=== PATIENT | female | born 1935 | race Caucasian/White ===

== ENCOUNTER 2022-04-07 07:26 | Observation (INO) ==
[2022-04-07] MEDS ORDERED: ONDANSETRON INJ 2 MG/ML 2 ML VIAL IV STA (07:44)
[2022-04-07] MEDS ORDERED: SODIUM CHLORIDE 0.9% 500 ML IV SCH (07:45)
--- NOTE | 2022-04-07 07:51 | Emergency Department Note ---
Impression & Plan Syncope, Acute hypokalemia, Contusion of face ED Provider Note NAME: ROBBIE GALLEGOS AGE: 86 SEX: F : 1935 ARRIVES VIA: Ambulance INFORMANT: Patient ED PROVIDER(S): Selvin Fry DO CHIEF COMPLAINT: Syncope HPI: Patient is an 86-year-old female who presents to the ER for a syncopal episode. Patient took 10 mg of her 's Aricept by accident last night. She wanted to go to the bathroom and the next thing she knew she woke up on the floor. Following that she has been persistently vomiting. She feels very dizzy and lightheaded. She feels very unstable with walking. Denies any headache and notes that her chin is a little sore. Is worse when she pushes on it. She does admit to some bruising there from falling and a chipped tooth. Denies any neck pain chest pain belly pain her any weakness or numbness in the arms or legs. ROS: See above HPI for pertinent positives & negatives. A total of 10 systems re viewed and were otherwise negative. PAST MEDICAL HISTORY:See Below PAST SURGICAL HISTORY:See Below FAMILY HISTORY:See Below SOCIAL HISTORY:See Below HOME MEDICATIONS:See Below ALLERGIES:See Below VITALS:See Below PHYSICAL EXAMINATION: GENERAL: alert, well appearing, well nourished, no distress, non-toxic HEAD: normal cephalic, atraumatic EYE EXAM: normal conjunctiva, PERRL and EOM's grossly intact OROPHARYNX: no exudate, no erythema, abrasion over the lower lip midline with small amount of oozing. #8 tooth is chipped. #9 is slightly loose. EARS: TMs clear b/l NECK: supple, no nuchal rigidity, no adenopathy, non-tender CHEST: stable to compression anteriorly and posteriorly LUNGS: clear to auscultation. Normal chest wall mechanics HEART: no murmurs, S1 normal and S2 normal ABDOMEN: abdomen soft, non-tender, normo-active bowel sounds, no masses, no rebound or guarding. PELVIS: stable to compression anteriorly and posteriorly BACK: Back is symmetrical on inspection and there is no deformity, no midline tenderness, no CVA tenderness. UPPER EXTREMITIES: full active and passive range of motion of all joints without tenderness to palpation LOWER EXTREMITIES: full active and passive range of motion of all joints without tenderness to palpation NEURO EXAM: Normal sensorium, cranial nerves II-XII grossly intact, normal speech, no gross weakness of arms, no gross weakness of legs. GCS: 15. MEDICAL DECISION MAKING: Patient is an 86-year-old female who syncopized following accidentally taking her 's medications. She denies any headache or change in vision. She does have some soreness on the chin. IV was established blood work was obtained. She had persistent vomiting since this occurred. Labs show no significant leukocytosis or anemia. INR unremarkable. BMP with mild hypokalemia 3.3. LFTs bilirubin was unremarkable. Troponin was negative. TSH slightly up at 4.8. UA was contaminated but no signs of infection. COVID was negative. CT head cervical spine and face showed no acute fractures. Patient was updated bedside. Discussed with Dr. Rell Koroma for further evaluation. Triage Nursing notes reviewed. Limited review of prior medical records performed Vital Signs: reviewed and remarkable for HTN Differential diagnosis: Differential diagnoses include major intracranial, cervical, spinal, thoracic, abdominal, pelvic and neurologic injury. Fracture, contusion, sprain, strain, laceration, abrasions included as well. ER treatment provided: See below Diagnostics interpreted by me: ECG: Sinus rhythm rate 79 Poor baseline QTC 449 Cardiac Monitoring: An order was placed for continuous cardiac monitoring. The monitor shows a rate of 80 with sinusrhythm. Laboratory studies: As stated above and show below. Imaging studies: CT of the head cervical spine and face shows no acute fractures Consultation(s): As described above Procedures: none Critical Care: None Past Med/Surg History Medical History History of trigeminal neuralgia Hyperlipemia Hypertension Skin cancer FACE Surgical History H/O colonoscopy H/O tubal ligation History of cataract surgery BILAT Status post Mohs surgery for basal cell carcinoma Status post right breast lumpectomy (10/14/21) Right Breast Lumpectomy with Wire Locilization(Right) - Nimesh Escamilla DO Family History (Updated 04/07/22 @ 10:08 by Marcio Koroma) Father Cancer Oral cancer; age 54 Hypertension Lung cancer Brother Stroke Hypertension Mother Hypertension age 80 in her sleep; cause unknown Social History (Updated 04/07/22 @ 10:09 by Marcio Koroma) Smoking Status: Never smoker Second Hand Exposure: No; Hx Alcohol Use: Yes Alcohol type: wine Alcohol Intake Frequency: Monthly or Less Hx Substance Use: No Preferred Language: Hungarian Communication Ability: Effective Distribution Operations Supervisor Required: No Beliefs That Will Affect Care: None marital status: Current Living Situation: Spouse [facility] 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 How many Children do You have: 2 How many Children do You have Comment: sons Feels Safe at Home: Yes during the past year weight has: remained stable Assistive Devices: Glasses Allergies Allergies Allergy/AdvReac Type Severity Reaction Status Date / Time No Known Allergies Allergy Verified 10/25/21 12:55 Home Meds Home Medications Medication Instructions Recorded Confirmed fluvastatin 80 mg tablet,extended 80 mg PO HS 04/10/19 10/25/21 release 24 hr gabapentin 100 mg capsule 200 mg PO HS 04/10/19 10/25/21 losartan 100 mg tablet 100 mg PO QAM 04/10/19 10/25/21 multivitamin (Daily Multi-Vitamin 1 tab PO QAM 04/10/19 10/25/21 tablet) Results & Data (ED) Vital Signs Vital Signs - 24 hr 04/07/22 07:39 04/07/22 07:39 04/07/22 07:43 Temperature 37.1 C Temperature Source Oral Pulse Rate 79 Respiratory Rate 16 Respiratory Effort / Characteristics Non-Labored Respiratory Depth Normal Blood Pressure 171/74 H Blood Pressure Mean 106 Pulse Oximetry 97 97 97 Oxygen Delivery Method Room Air Room Air Room Air Sepsis Recent Fever Within 48 Hours No Sepsis New/Unexplained Change in Mental Status No Sepsis Action Taken by Nursing No Action Required 04/07/22 08:00 04/07/22 08:00 Temperature Temperature Source Pulse Rate 76 Respiratory Rate 14 Respiratory Effort / Characteristics Respiratory Depth Blood Pressure 151/78 H Blood Pressure Mean 102 Pulse Oximetry Oxygen Delivery Method Sepsis Recent Fever Within 48 Hours Sepsis New/Unexplained Change in Mental Status Sepsis Action Taken by Nursing Laboratory Data Result diagrams: 04/07/22 07:38 04/07/22 07:38 Lab Results 04/07/22 04/07/22 04/07/22 Range/Units 07:38 07:38 07:38 WBC 5.78 (4.8-10.8) K/ul RBC 4.26 (3.93-5.22) M/uL Hgb 13.5 (12.0-16.0) g/dl Hct 39.4 (34.1-44.9) % MCV 92.5 (80.0-100.0) fL MCH 31.7 (25.0-34.0) pg MCHC 34.3 (32.0-36.0) g/dL RDW Std Deviation 42.6 (36.4-46.3) fL RDW Coeff of Jayde 12.4 (11.5-14.5) % Plt Count 197 (130-400) K/uL MPV 9.3 L (9.4-12.3) fL Immature Gran % (Auto) 0.5 % Neut % (Auto) 80.7 % Lymph % (Auto) 10.2 % Huntington % (Auto) 7.8 % Eos % (Auto) 0.3 % Baso % (Auto) 0.5 % Neut # (Auto) 4.66 (1.4-6.5) K/uL Lymph # (Auto) 0.59 L (1.2-3.4) K/uL Huntington # (Auto) 0.45 (0.24-0.82) K/uL Eos # (Auto) 0.02 (0-0.50) K/uL Baso # (Auto) 0.03 (0-0.2) K/uL Immature Gran # (Auto) 0.03 H (0.00-0.02) K/uL PT 11.3 (9.0-12.0) Seconds INR 1.1 (0.9-1.1) APTT 24.1 (21.0-31.0) Seconds PTT Ratio 0.9 Sodium 136 (136-145) mmol/L Potassium 3.3 L (3.5-5.1) mmol/L Chloride 102 (98-107) mmol/L Carbon Dioxide 26 (21-32) mmol/L Anion Gap 8 (3-11) BUN 11 (6-23) mg/dl Creatinine 0.69 (0.6-1.2) mg/dl Est Cr Clr Drug Dosing 48.9 ml/min Est GFR ( Amer) 92.6 ml/min Est GFR (Non-Af Amer) 79.9 ml/min BUN/Creatinine Ratio 15.9 (10-20) Glucose 184 H (70-99(Fasting)) mg/dl Calcium 9.1 (8.5-10.1) mg/dl Magnesium 1.7 (1.7-2.4) mg/dl Total Bilirubin 0.5 (0.2-1.0) mg/dl AST 42 H (13-39) U/L ALT 35 (7-52) U/L Alkaline Phosphatase 69 (34-104) U/L Total Creatine Kinase (26-192) U/L Troponin I High Sens 4.4 (0-14) pg/ml Total Protein 6.3 (6.0-8.3) gm/dl Albumin 4.2 (3.4-5.0) gm/dl Globulin 2.1 L (2.5-4.0) gm/dl Albumin/Globulin Ratio 2.0 (0.9-2) TSH (0.300-4.500) uIu/ml Free T4 (0.61-1.60) ng/dl SARS-CoV-2, RNA, NAAT (NEGATIVE) 04/07/22 04/07/22 04/07/22 Range/Units 07:38 07:38 07:54 WBC (4.8-10.8) K/ul RBC (3.93-5.22) M/uL Hgb (12.0-16.0) g/dl Hct (34.1-44.9) % MCV (80.0-100.0) fL MCH (25.0-34.0) pg MCHC (32.0-36.0) g/dL RDW Std Deviation (36.4-46.3) fL RDW Coeff of Jayde (11.5-14.5) % Plt Count (130-400) K/uL MPV (9.4-12.3) fL Immature Gran % (Auto) % Neut % (Auto) % Lymph % (Auto) % Huntington % (Auto) % Eos % (Auto) % Baso % (Auto) % Neut # (Auto) (1.4-6.5) K/uL Lymph # (Auto) (1.2-3.4) K/uL Huntington # (Auto) (0.24-0.82) K/uL Eos # (Auto) (0-0.50) K/uL Baso # (Auto) (0-0.2) K/uL Immature Gran # (Auto) (0.00-0.02) K/uL PT (9.0-12.0) Seconds INR (0.9-1.1) APTT (21.0-31.0) Seconds PTT Ratio Sodium (136-145) mmol/L Potassium (3.5-5.1) mmol/L Chloride (98-107) mmol/L Carbon Dioxide (21-32) mmol/L Anion Gap (3-11) BUN (6-23) mg/dl Creatinine (0.6-1.2) mg/dl Est Cr Clr Drug Dosing ml/min Est GFR ( Amer) ml/min Est GFR (Non-Af Amer) ml/min BUN/Creatinine Ratio (10-20) Glucose (70-99(Fasting)) mg/dl Calcium (8.5-10.1) mg/dl Magnesium (1.7-2.4) mg/dl Total Bilirubin (0.2-1.0) mg/dl AST (13-39) U/L ALT (7-52) U/L Alkaline Phosphatase (34-104) U/L Total Creatine Kinase 140 (26-192) U/L Troponin I High Sens (0-14) pg/ml Total Protein (6.0-8.3) gm/dl Albumin (3.4-5.0) gm/dl Globulin (2.5-4.0) gm/dl Albumin/Globulin Ratio (0.9-2) TSH 4.827 H (0.300-4.500) uIu/ml Free T4 0.76 (0.61-1.60) ng/dl SARS-CoV-2, RNA, NAAT NEGATIVE (NEGATIVE) Administered Medications Discontinued Medications Sodium Chloride (Nss) 500 mls @ 999 mls/hr IV .Q31M JONNY Stop: 04/07/22 08:15 Last Infusion: 04/07/22 08:34 Dose: 0 mls/hr Documented By: Admin: 04/07/22 08:05 Dose: 999 mls/hr Documented By: CATIA Ioversol (Optiray 320 500ml) 119 ml IV ONCE ONE Stop: 04/07/22 11:51 Last Admin: 04/07/22 11:42 Dose: 119 ml Documented By: LIMA Ondansetron HCl (Ondansetron Inj 2 Mg/Ml 2 Ml Vial) 4 mg IV NOW STA Stop: 04/07/22 07:45 Last Admin: 04/07/22 08:04 Dose: 4 mg Documented By: CATIA Potassium Chloride (Potassium Chloride Crtab 20 Meq Tabcr) 40 meq PO TODAY@0906 JONNY Stop: 04/07/22 12:00 Last Admin: 04/07/22 11:21 Dose: 40 meq Documented By: CATIA Imaging Data Radiologist's Impression: Cervical Spine CT 04/07/22 07:43 CT OF THE CERVICAL SPINE WITHOUT CONTRAST CLINICAL HISTORY: Fall. COMPARISON STUDY: No previous studies for comparison. TECHNIQUE: Helical axial images of the cervical spine were obtained without IV contrast. Sagittal and coronal reconstructions were viewed. Automated exposure control was utilized for the study. A dose lowering technique was utilized adhering to the principles of ALARA. FINDINGS: There is partial fusion of C2 and C3. Mild anterolisthesis of C4 on C5 and C7 on T1 is likely due to facet arthrosis. Severe multilevel facet arthrosis and moderate multilevel degenerative disc disease within the cervical spine is present. No acute cervical spine fracture. Craniocervical junction is intact. Th ere is no prevertebral edema. IMPRESSION: 1. No acute cervical spine fracture or subluxation. 2. Severe multilevel degenerative changes within the cervical spine. ACT 112: Negative or not required by law. Electronically signed by: Amador Coley M.D. 04/07/2022 8:[address] 04/07/22 07:[address] WITHOUT CONTRAST CLINICAL HISTORY: fall hit face COMPARISON STUDY: None. TECHNIQUE: A maxillofacial CT was performed without IV contrast. Coronal and sagittal reformats were viewed. Automated exposure control was utilized for the study. A dose lowering technique was utilized adhering to the principles of ALARA. FINDINGS: Lungs are intact. No retrobulbar hematoma. Alignment of the temporomandibular joints is anatomic. No acute facial bone fracture is noted. Orbital floors are intact. There is mild sinus mucosal thickening. There is no acute skull base fracture. Cervical spine CT will be reported separately. IMPRESSION: No acute facial fracture. ACT 112: Negative or not required by law. Electronically signed by: Amador Coley M.D. 04/07/2022 8:44 AM Chest X-Ray 04/07/22 07:44 XR chest 1V portable CLINICAL HISTORY: fall COMPARISON STUDY: Chest radiograph January 24, [address] February 08, 2022. FINDINGS: Lung volumes are normal. Lungs are clear. There is no pneumothorax or pleural effusion. Cardiac size is normal. Mediastinal contours are normal. There is no evidence for pulmonary edema. IMPRESSION: No acute cardiopulmonary findings. ACT 112: Negative or not required by law. Electronically signed by: Amador Coley M.D. 04/07/2022 8:[address] 04/07/22 07:44 CT SCAN OF THE BRAIN WITHOUT IV CONTRAST CLINICAL HISTORY: Syncope. COMPARISON STUDY: No priors. TECHNIQUE: Unenhanced axial CT scan of the brain is performed from the vertex to the skull base. A dose lowering technique was utilized adhering to the principles of ALARA. FINDINGS: Brain parenchyma: There is age-related involutional change noting moderate to advanced subcortical and periventricular microangiopathic disease. There is no hemorrhage, mass effect, or evidence of acute territorial ischemia by CT criteria. Lanier-white matter differentiation is preserved. No extra-axial fluid collection is seen. Ventricles, sulci, cisterns: Prominent secondary to involutional change. Intracranial vasculature: There is atherosclerotic calcification of the cave rnous carotid arteries. Calvarium: The skeletal structures are osteopenic. No depressed calvarial fracture is identified. Sinuses and mastoids: Trace mucosal thickening is noted within the maxillary antra. The remaining paranasal sinuses are clear. The mastoid air cells are well pneumatized. Orbits: The bony orbits are grossly intact. There are bilateral ocular lens implants. IMPRESSION: There is no hemorrhage, mass effect, or evidence of acute territorial ischemia by CT criteria. ACT 112: Negative or not required by law. Electronically signed by: Brian Montoya M.D. 04/07/2022 8:40 AM Discharge Plan Visit Data Chief Complaint: Syncope ED Provider: Selvin Fry Discharge Problem: Syncope, Acute hypokalemia, Contusion of face Patient Disposition: Admitted As Inpatient Discharge Instructions Interventions: ED Discharge Assessment Last Done: 04/07/22 11:39
[2022-04-07 08:01] LABS: Basophils # (auto) 0.03 K/uL (0-0.2); Basophils % (auto) 0.5 %; Eosinophils # (auto) 0.02 K/uL (0-0.50); Eosinophils % (auto) 0.3 %; Hematocrit (blood only) 39.4 % (34.1-44.9); Hemoglobin 13.5 g/dl (12.0-16.0); Immature Granulocytes # (auto) 0.03 K/uL (0.00-0.02); Immature Granulocytes % (auto) 0.5 %; Lymphocytes # (auto) 0.59 K/uL (1.2-3.4); Lymphocytes % (auto) 10.2 %; Mean Corpuscular Hemoglobin 31.7 pg (25.0-34.0); Mean Corpuscular Hgb Conc 34.3 g/dL (32.0-36.0); Mean Corpuscular Volume 92.5 fL (80.0-100.0); Mean Platelet Volume 9.3 fL (9.4-12.3); Monocytes # (auto) 0.45 K/uL (0.24-0.82); Monocytes % (auto) 7.8 %; Neutrophils # (auto) 4.66 K/uL (1.4-6.5); Neutrophils % (auto) 80.7 %; Platelet Count 197 K/uL (130-400); RDW Coefficient of Variation 12.4 % (11.5-14.5); RDW Standard Deviation 42.6 fL (36.4-46.3); Red Blood Count 4.26 M/uL (3.93-5.22); White Blood Count 5.78 K/ul (4.8-10.8)
[2022-04-07 08:12] LABS: INR 1.1 (0.9-1.1); Partial Thromboplastin Ratio 0.9; Partial Thromboplastin Time 24.1 Seconds (21.0-31.0); Prothrombin Time 11.3 Seconds (9.0-12.0)
[2022-04-07 08:25] LABS: Albumin Level 4.2 gm/dl (3.4-5.0); BUN Creatinine Ratio 15.9 (10-20); Bilirubin,Total 0.5 mg/dl (0.2-1.0); Calcium 9.1 mg/dl (8.5-10.1); Creatinine Clr Calc Pharmacy 48.9 ml/min; Est GFR (African American) 92.6 ml/min; Est GFR (Non-African American) 79.9 ml/min; Globulin 2.1 gm/dl (2.5-4.0); Magnesium 1.7 mg/dl (1.7-2.4); Potassium 3.3 mmol/L (3.5-5.1); Total Protein 6.3 gm/dl (6.0-8.3)
--- NOTE | 2022-04-07 08:25 | XRay Report ---
XR chest 1V portable CLINICAL HISTORY: fall COMPARISON STUDY: Chest radiograph January 24, [address] February 08, 2022. FINDINGS: Lung volumes are normal. Lungs are clear. There is no pneumothorax or pleural effusion. Car diac size is normal. Mediastinal contours are normal. There is no evidence for pulmonary edema. IMPRESSION: No acute cardiopulmonary findings. ACT 112: Negative or not required by law. Electronically signed by: Amador Coley M.D. 04/07/2022 8:23 AM
[2022-04-07 08:26] LABS: Troponin I High Sensitivity 4.4 pg/ml (0-14)
[2022-04-07 08:35] LABS: Thyroid Stimulating Hormone 4.827 uIu/ml (0.300-4.500)
--- NOTE | 2022-04-07 08:41 | CT Scan Report ---
CT SCAN OF THE BRAIN WITHOUT IV CONTRAST CLINICAL HISTORY: Syncope. COMPARISON STUDY: No priors. TECHNIQUE: Unenhanced axial CT scan of the brain is performed from the vertex to the skull base. A do se lowering technique was utilized adhering to the principles of ALARA. FINDINGS: Brain parenchyma: There is age-related involutional change noting moderate to advanced subcortical an d periventricular microangiopathic disease. There is no hemorrhage, mass effect, or evidence of acute territorial ischemia by CT criteria. Lanier-white matter differentiation is preserved. No extra-axial fluid collection is seen. Ventricles, sulci, cisterns: Prominent secondary to involutional change. Intracranial vasculature: There is atherosclerotic calcification of the cavernous carotid arteries. Calvarium: The skeletal structures are osteopenic. No depressed calvarial fracture is identified. Sinuses and mastoids: Trace mucosal thickening is noted within the maxillary antra. The remaining par anasal sinuses are clear. The mastoid air cells are well pneumatized. Orbits: The bony orbits are grossly intact. There are bilateral ocular lens implants. IMPRESSION: There is no hemorrhage, mass effect, or evidence of acute territorial ischemia by CT susana mai. ACT 112: Negative or not required by law. Electronically signed by: Brian Montoya M.D. 04/07/2022 8:40 AM
--- NOTE | 2022-04-07 08:46 | CT Scan Report ---
MAXILLOFACIAL CT WITHOUT CONTRAST CLINICAL HISTORY: fall hit face COMPARISON STUDY: None. TECHNIQUE: A maxillofacial CT was performed without IV contrast. Coronal and sagittal reformats were viewed. Automated exposure control was utilized for the study. A dose lowering technique was utiliz ed adhering to the principles of ALARA. FINDINGS: Lungs are intact. No retrobulbar hematoma. Alignment of the temporomandibular joints is sanju tomic. No acute facial bone fracture is noted. Orbital floors are intact. There is mild sinus mucosal thickening. There is no acute skull base fracture. Cervical spine CT will be reported separately. IMPRESSION: No acute facial fracture. ACT 112: Negative or not required by law. Electronically signed by: Amador Coley M.D. 04/07/2022 8:44 AM
--- NOTE | 2022-04-07 08:50 | CT Scan Report ---
CT OF THE CERVICAL SPINE WITHOUT CONTRAST CLINICAL HISTORY: Fall. COMPARISON STUDY: No previous studies for comparison. TECHNIQUE: Helical axial images of the cervical spine were obtained without IV contrast. Sagittal a nd coronal reconstructions were viewed. Automated exposure control was utilized for the study. A do se lowering technique was utilized adhering to the principles of ALARA. FINDINGS: There is partial fusion of C2 and C3. Mild anterolisthesis of C4 on C5 and C7 on T1 is like ly due to facet arthrosis. Severe multilevel facet arthrosis and moderate multilevel degenerative dis c disease within the cervical spine is present. No acute cervical spine fracture. Craniocervical junc tion is intact. There is no prevertebral edema. IMPRESSION: 1. No acute cervical spine fracture or subluxation. 2. Severe multilevel degenerative changes within the cervical spine. ACT 112: Negative or not required by law. Electronically signed by: Amador Coley M.D. 04/07/2022 8:48 AM
[2022-04-07] MEDS ORDERED: POTASSIUM CHLORIDE CRTAB 20 MEQ TABCR PO SCH (09:06)
[2022-04-07] MEDS ORDERED: POTASSIUM CHLORIDE CRTAB 20 MEQ TABCR PO STA (09:06)
--- NOTE | 2022-04-07 09:07 | History & Physical Report ---
Date of Service April 07, 2022 Assessment & Plan (1) Syncope: Plan: Syncope with resulting fall. Unknown amount of time with loss of consciousness. Suffered facial contusion and a chipped right maxillary incisor. Fortunately no evidence of other injury - negative head CT, negative c-spine CT. NO evidence of pelvic or hip fracture. The patient inadvertently took her 's aricept 10mg last evening before this event. Aricept, through activation of the vagus nerve, can cause bradycardia, heart block, and syncope. Thus, it is very possible that her event was due to her taking aricept. Alternatively, it is possible that the aricept was not the precipitating factor. Heart arrhythmia de chris may have been the culprit. Tachy-arrhythmia, kwasi-arrhythmia, pauses, AV block, etc are all possible causes of her syncope. Orthostatic BPs were checked in the ER prior to admission and were wnl. EKG without ischemic changes. Initial troponin negative. No hypoglycemia at time of presentation. Finally, she had an outpatient echo in 02/2022 that showed normal EF and normal valve function. Plan - * place on telemetry * CTA head & neck - r/o occlusive PAD * if the CTAs are negative will arrange outpatient 30-day event monitor to r/o arrhythmia as the cause of her event * check hemoglobin a1c in the am * replace low K, however I do not believe that this contributed to her event * provide gentle fluids today (2) Recurrent falls: Plan: See #1 above. PT eval to ensure safe discharge. Check a B12 level to be complete. (3) Contusion of face: Plan: Tylenol prn pain. No evidence of any facial fracture. Has a chipped tooth - f/u with her dentist after discharge for this. (4) Hypertension: Plan: BPs elevated upon presentation. Resume losartan. Trend BPs. Again no evidence of orthostasis. (5) Acute hypokalemia: Plan: Replace with 40meq of K-dur. Repeat K in am. Mag level wnl. (6) Trigeminal neuralgia: Plan: Gabapentin was recently stopped. She was changed to tegretol 100mg BID for prophylaxis/pain control. Date of switch is unknown. Check a tegretol level in am. (7) Hyperglycemia: Plan: Repeat BMP in am. Check a1c in am to r/o pre-DM or DM. (8) Elevated AST (SGOT): Plan: Checked CPK due to fall - CPK was wnl. Repeat the ast/alt in am. etiology uncertain. Due to statin usage? Other? (9) Dyslipidemia: Plan: Continue statin. Plan Pt's son was updated by phone with plan of care. Place in observation status. History of Present Illness Chief Complaint: fall/syncope Primary Care Provider: [facility] Very pleasant 86yo female with history of HTN and trigeminal neuralgia presents from her apartment at [facility] after having had a fall with syncope. Patient states she was in her usual state of health the last few days and has felt well. Last PM she accidentally took her 's aricept 10mg just before bedtime. She also took her evening trigeminal neuralgia medication (gabapentin? but patient stated it was changed recently and she can't remember the name of it). She went to bed without any issue and felt fine. She woke up in the middle of the night to use the bathroom and had no troubles the first time. A little later in the night she woke up to void a second time. On this occasion she went to the closet to get her slippers and while doing so she noticed her visual was "a bit off." She then walked to the bathroom and from there doesn't remember anything until she woke up on the floor. She does not know how long she was laying on the ground. She struck her face and chipped her central incisor and bruised her chin. She denied any neck pain or headache, no hip pain or back pain, or pain in any other location. Prior to this fall/syncopal episode she denies ANY prodromal shortness of breath, palpitations, chest pain, dizziness, or lightheadedness. She only had the blurry vision briefly in the closet before the event. When she woke up on the floor she had nausea with subsequent dry heaves. She pulled the emergency cord in her bathroom and assistance came to her apartment. Ultimately an ambulance was summoned and she was brought to [facility]. Patient states she has had 2 other syncopal episodes recently. First was on December 19. She was in her bathroom at home and passed out. She had no prodromal symptoms then. Another episode occurred sometime in December. She had walked to her kitchen and was standing at the sink when she fell/passed out. Again she had no prodromal symptoms. She states that with the December 19 episode she was "dizzy" for a few days and "I just layed in bed." She denies true vertigo with that November episode. She was sent for an echo in late February as part of her work-up for her recurrent syncope. This returned normal with preserved EF and normal valve function. She has never had an event or Holter monitor. Allergies Allergy/AdvReac Type Severity Reaction Status Date / Time No Known Allergies Allergy Verified 10/25/21 12:55 Home Medications Medication Instructions Recorded Confirmed Type fluvastatin 80 mg tablet,extended 80 mg PO HS 04/10/19 10/25/21 History release 24 hr gabapentin 100 mg capsule 200 mg PO HS 04/10/19 10/25/21 History losartan 100 mg tablet 100 mg PO QAM 04/10/19 10/25/21 History multivitamin (Daily Multi-Vitamin 1 tab PO QAM 04/10/19 10/25/21 History tablet) Past Med/Surg History Medical History History of trigeminal neuralgia Hyperlipemia Hypertension Skin cancer FACE Surgical History H/O colonoscopy H/O tubal ligation History of cataract surgery BILAT Status post Mohs surgery for basal cell carcinoma Status post right breast lumpectomy (10/14/21) Right Breast Lumpectomy with Wire Locilization(Right) - Nimesh Escamilla, DO Family History (Updated 04/07/22 @ 10:08 by Marcio Koroma) Father Cancer Oral cancer; age 54 Hypertension Lung cancer Brother Stroke Hypertension Mother Hypertension age 80 in her sleep; cause unknown Social History (Updated 04/07/22 @ 10:09 by Marcio Koroma) Smoking Status: Never smoker Second Hand Exposure: No; Do You Dip or Chew Tobacco: No; Tobacco Cessation Education Requested by Patient: No Hx Alcohol Use: No Hx Substance Use: No Preferred Language: Bengali Communication Ability: Effective German Tutor Required: No Beliefs That Will Affect Care: None marital status: Current Living Situation: Spouse Current Living Situation Comment: Independent Living : [facility]. 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 How many Children do You have: 2 How many Children do You have Comment: sons Other Information That Helps Us Care for You: No Feels Safe at Home: Yes Safety Concerns: Feels Safe At This Time during the past year weight has: remained stable Assistive Devices: None Review of Systems Review of Systems: gen - no fevers, no chills; has lost 15 pounds of weight over last 2-3 years HENT - no recent visual changes except this am prior to her syncopal event; no dysphagia; no runny nose, congestion neck - denies pain CV - no chest pain, palpitations, dyspnea, orthopnea; syncope x 3 (including today's event) since the summer pulm - no cough, dyspnea, or HERMOSILLO GI - nausea/dry heaves today; but no chronic abd pain, vomiting, diarrhea, BRBPR, melena - no dysuria, no hematuria, no foul-smelling urine musculo - facial pain only from her fall; no hip pain, back pain, joint pains elsewhere skin - itchy rash on mid-chest recently endo - no diabetes neuro - no headaches; no motor weakness; no paresthesias psych - no depression or anxiety lymph - no lumps or masses Physical Exam Physical Exam: gen - very pleasant, NAD, no confusion/awake/alert eyes - lens implants b/l, PERRL face - bruise on chin and left zygoma region; nontender with palpation over facial structures HENT - central incisor on right (maxillary) with chipped tooth; other teeth wnl; no tongue bite dahl; mmm neck - no JVD, masses, bruits heart - RRR, s1 s2, 2/6 JEANNE LLSB lungs - CTA b/l abd - soft NT ND BS+; no HSM ext - no edema, pulses 2+ b/l in feet musculo - no hip pain with passive ROM; no shoulder pain with passive ROM; no obvious deformities back - no tenderness to palpation over c-spine, t-spine, l-spine neuro - strength 5/5 x 4 exts; finger/nose/finger maneuver without ataxia; gait not tested; CN 3-12 intact skin - bruise on chin, left zygoma region psych - a/o x 3 lymph - no cervical lymph nodes Results & Data Results & Data ([facility]) Vital Signs (Past 12 Hours) Vital Signs Temp Pulse Resp BP Pulse Ox O2 Del Method 04/07/22 07:43 97 Room Air 04/07/22 07:39 97 Room Air 04/07/22 07:39 37.1 C 79 16 171/74 H 97 Room Air Laboratory Results Laboratory Results - last 24 hr 04/07/22 04/07/22 04/07/22 07:38 07:38 07:38 WBC 5.78 RBC 4.26 Hgb 13.5 Hct 39.4 MCV 92.5 MCH 31.7 MCHC 34.3 RDW Std Deviation 42.6 RDW Coeff of Jayde 12.4 Plt Count 197 MPV 9.3 L Immature Gran % (Auto) 0.5 Neut % (Auto) 80.7 Lymph % (Auto) 10.2 Dawes % (Auto) 7.8 Eos % (Auto) 0.3 Baso % (Auto) 0.5 Neut # (Auto) 4.66 Lymph # (Auto) 0.59 L Dawes # (Auto) 0.45 Eos # (Auto) 0.02 Baso # (Auto) 0.03 Immature Gran # (Auto) 0.03 H PT 11.3 INR 1.1 APTT 24.1 PTT Ratio 0.9 Sodium 136 Potassium 3.3 L Chloride 102 Carbon Dioxide 26 Anion Gap 8 BUN 11 Creatinine 0.69 Est Cr Clr Drug Dosing 48.9 Est GFR ( Amer) 92.6 Est GFR (Non-Af Amer) 79.9 BUN/Creatinine Ratio 15.9 Glucose 184 H Calcium 9.1 Magnesium 1.7 Total Bilirubin 0.5 AST 42 H ALT 35 Alkaline Phosphatase 69 Total Creatine Kinase Troponin I High Sens 4.4 Total Protein 6.3 Albumin 4.2 Globulin 2.1 L Albumin/Globulin Ratio 2.0 TSH Free T4 Urine Color Urine Appearance Urine pH Ur Specific Muse Urine Protein Urine Glucose (UA) Urine Ketones Urine Blood Urine Nitrite Urine Bilirubin Urine Urobilinogen Ur Leukocyte Esterase Urine WBC (Auto) Urine RBC (Auto) U Hyaline Cast (Auto) U Epithel Cells (Auto) Urine Bacteria (Auto) SARS-CoV-2, RNA, NAAT 04/07/22 04/07/22 04/07/22 07:38 07:38 07:54 WBC RBC Hgb Hct MCV MCH MCHC RDW Std Deviation RDW Coeff of Jayde Plt Count MPV Immature Gran % (Auto) Neut % (Auto) Lymph % (Auto) Dawes % (Auto) Eos % (Auto) Baso % (Auto) Neut # (Auto) Lymph # (Auto) Dawes # (Auto) Eos # (Auto) Baso # (Auto) Immature Gran # (Auto) PT INR APTT PTT Ratio Sodium Potassium Chloride Carbon Dioxide Anion Gap BUN Creatinine Est Cr Clr Drug Dosing Est GFR ( Amer) Est GFR (Non-Af Amer) BUN/Creatinine Ratio Glucose Calcium Magnesium Total Bilirubin AST ALT Alkaline Phosphatase Total Creatine Kinase Pending Troponin I High Sens Total Protein Albumin Globulin Albumin/Globulin Ratio TSH 4.827 H Free T4 0.76 Urine Color Urine Appearance Urine pH Ur Specific Muse Urine Protein Urine Glucose (UA) Urine Ketones Urine Blood Urine Nitrite Urine Bilirubin Urine Urobilinogen Ur Leukocyte Esterase Urine WBC (Auto) Urine RBC (Auto) U Hyaline Cast (Auto) U Epithel Cells (Auto) Urine Bacteria (Auto) SARS-CoV-2, RNA, NAAT NEGATIVE 04/07/22 09:22 WBC RBC Hgb Hct MCV MCH MCHC RDW Std Deviation RDW Coeff of Jayde Plt Count MPV Immature Gran % (Auto) Neut % (Auto) Lymph % (Auto) Dawes % (Auto) Eos % (Auto) Baso % (Auto) Neut # (Auto) Lymph # (Auto) Dawes # (Auto) Eos # (Auto) Baso # (Auto) Immature Gran # (Auto) PT INR APTT PTT Ratio Sodium Potassium Chloride Carbon Dioxide Anion Gap BUN Creatinine Est Cr Clr Drug Dosing Est GFR ( Amer) Est GFR (Non-Af Amer) BUN/Creatinine Ratio Glucose Calcium Magnesium Total Bilirubin AST ALT Alkaline Phosphatase Total Creatine Kinase Troponin I High Sens Total Protein Albumin Globulin Albumin/Globulin Ratio TSH Free T4 Urine Color Yellow Urine Appearance Cloudy A Urine pH 8.0 H Ur Specific Muse 1.008 Urine Protein Negative Urine Glucose (UA) Trace H Urine Ketones Negative Urine Blood Negative Urine Nitrite Negative Urine Bilirubin Negative Urine Urobilinogen Negative Ur Leukocyte Esterase Negative Urine WBC (Auto) 1-5 Urine RBC (Auto) 0-4 U Hyaline Cast (Auto) 1-5 U Epithel Cells (Auto) 10-20 H Urine Bacteria (Auto) Negative SARS-CoV-2, RNA, NAAT Diagnostic Findings Cervical Spine CT 04/07/22 07:43 CT OF THE CERVICAL SPINE WITHOUT CONTRAST CLINICAL HISTORY: Fall. COMPARISON STUDY: No previous studies for comparison. TECHNIQUE: Helical axial images of the cervical spine were obtained without IV contrast. Sagittal and coronal reconstructions were viewed. Automated exposure control was utilized for the study. A dose lowering technique was utilized adhering to the principles of ALARA. FINDINGS: There is partial fusion of C2 and C3. Mild anterolisthesis of C4 on C5 and C7 on T1 is likely due to facet arthrosis. Severe multilevel facet arthrosis and moderate multilevel degenerative disc disease within the cervical spine is present. No acute cervical spine fracture. Craniocervical junction is intact. There is no prevertebral edema. IMPRESSION: 1. No acute cervical spine fracture or subluxation. 2. Severe multilevel degenerative changes within the cervical spine. ACT 112: Negative or not required by law. Electronically signed by: Amador Coley M.D. 04/07/2022 8:[address] 04/07/22 07:[address] WITHOUT CONTRAST CLINICAL HISTORY: fall hit face COMPARISON STUDY: None. TECHNIQUE: A maxillofacial CT was performed without IV contrast. Coronal and sagittal reformats were viewed. Automated exposure control was utilized for the study. A dose lowering technique was utilized adhering to the principles of ALARA. FINDINGS: Lungs are intact. No retrobulbar hematoma. Alignment of the temporomandibular joints is anatomic. No acute facial bone fracture is noted. Orbital floors are intact. There is mild sinus mucosal thickening. There is no acute skull base fracture. Cervical spine CT will be reported separately. IMPRESSION: No acute facial fracture. ACT 112: Negative or not required by law. Electronically signed by: Amador Coley M.D. 04/07/2022 8:44 AM Chest X-Ray 04/07/22 07:44 XR chest 1V portable CLINICAL HISTORY: fall COMPARISON STUDY: Chest radiograph January 24, [address] February 08, 2022. FINDINGS: Lung volumes are normal. Lungs are clear. There is no pneumothorax or pleural effusion. Cardiac size is normal. Mediastinal contours are normal. There is no evidence for pulmonary edema. IMPRESSION: No acute cardiopulmonary findings. ACT 112: Negative or not required by law. Electronically signed by: Amador Coley M.D. 04/07/2022 8:[address] 04/07/22 07:44 CT SCAN OF THE BRAIN WITHOUT IV CONTRAST CLINICAL HISTORY: Syncope. COMPARISON STUDY: No priors. TECHNIQUE: Unenhanced axial CT scan of the brain is performed from the vertex to the skull base. A dose lowering technique was utilized adhering to the principles of ALARA. FINDINGS: Brain parenchyma: There is age-related involutional change noting moderate to advanced subcortical and periventricular microangiopathic disease. There is no hemorrhage, mass effect, or evidence of acute territorial ischemia by CT criteria. Lanier-white matter differentiation is preserved. No extra-axial fluid collection is seen. Ventricles, sulci, cisterns: Prominent secondary to involutional change. Intracranial vasculature: There is atherosclerotic calcification of the cavernous carotid arteries. Calvarium: The skeletal structures are osteopenic. No depressed calvarial fracture is identified. Sinuses and mastoids: Trace mucosal thickening is noted within the maxillary antra. The remaining paranasal sinuses are clear. The mastoid air cells are well pneumatized. Orbits: The bony orbits are grossly intact. There are bilateral ocular lens implants. IMPRESSION: There is no hemorrhage, mass effect, or evidence of acute territorial ischemia by CT criteria. ACT 112: Negative or not required by law. Electronically signed by: Brian Montoya M.D. 04/07/2022 8:40 AM EKG - NSR, biphasic P waves anterior leads c/w atrial enlargement, no ST changes; normal QTc Code Status & VTE Plan Code Status full PG Care Time/CCT Total # of Minutes Spent Total Time Spent with Patient: Total time spent is greater than 50% in coordination of care (as documented) at patient's floor/unit and/or counseling patient: Coding Level of Care Code INT OBSERVATION CARE 70M LVL 3 Diagnoses Syncope R55 Recurrent falls R29.6 Contusion of face S00.83XA Hypertension I10 Acute hypokalemia E87.6 Trigeminal neuralgia G50.0 Hyperglycemia R73.9 Elevated AST (SGOT) R74.01 Dyslipidemia E78.5
[2022-04-07 09:37] LABS: T4 Free Thyroxine 0.76 ng/dl (0.61-1.60)
[2022-04-07 09:54] LABS: Appearance Urine Cloudy (Clear); Bacteria Urine Automated Negative (Negative); Bilirubin Urine Negative (Negative); Blood Urine Negative (Negative); Color Urine Yellow; Glucose Urine UA Trace (Negative); Ketones Urine Negative (Negative); Leukocyte Esterase Urine Negative (Negative); Nitrite Urine Negative (Negative); Protein Urine Negative (Negative); RBC Urine Automated 0-4 /hpf (0-4); Specific Gravity Urine 1.008 (1.000-1.030); Urobilinogen Urine Negative (Negative)
[2022-04-07] MEDS ORDERED: OPTIRAY 320 500ml IV ONE (11:50)
--- NOTE | 2022-04-07 12:02 | CT Scan Report ---
CT ANGIOGRAM OF THE NECK CLINICAL HISTORY: Syncope. COMPARISON STUDY: No priors. TECHNIQUE: Following the IV administration of 119 of Optiray 320, CT angiogram of the neck was perfor med from the aortic arch to the skull base. Images are reviewed in the axial, sagittal, and coronal p lanes. 3-D MIPS images are created and assessed. IV contrast was administered without complication. A ll measurements were calculated based on NASCET criteria. A dose lowering technique was utilized adh ering to the principles of ALARA. FINDINGS: Thoracic aorta: Visualized portions of the thoracic aorta are normal in caliber. The aortic arch demo nstrates 4-vessel variant anatomy. The left vertebral artery arises directed from the thoracic aorta. Right carotid arterial system: The right common carotid artery is widely patent, as are the right int ernal and external carotid arteries. Left carotid arterial system: The left common carotid artery is widely patent, as are the left business services intern al and external carotid arteries. Minimal plaque is noted in the carotid bulb. Vertebral arteries: The vertebral arteries are widely patent bilaterally noting right-sided dominance . Subclavian arteries: Widely patent bilaterally. Intracranial vasculature: The visualized intracranial vessels at the skull base are patent. Jugular veins: Widely patent bilaterally. Brain parenchyma: The visualized brain parenchyma the skull base is within normal limits. Lung apices: Partially visualized upper lobe lung parenchyma appears clear. An accessory azygos fissu re is incidentally noted at the right apex. Soft tissues: The visualized pharyngeal soft tissues are normal in appearance noting angiographic pha se technique. The oropharyngeal airway appears widely patent. The salivary and thyroid glands are nor mal in appearance. No cervical lymphadenopathy is seen. Skeletal structures: The skeletal structures are osteopenic. The visualized calvarium at the skull ba se appears intact. The imaged cervical spine is maintained normally multilevel spondylosis. No lytic or blastic lesion is seen. Sinuses and mastoids: Mild mucosal thickening is noted in the maxillary antra. There are trace mastoi d effusions. IMPRESSION: Unremarkable CT angiogram of the neck. ACT 112: Negative or not required by law. Electronically signed by: Brian Montoya M.D. 04/07/2022 12:00 PM
--- NOTE | 2022-04-07 12:03 | CT Scan Report ---
CTA ANGIOGRAPHY OF THE HEAD CLINICAL HISTORY: syncope, recurrent COMPARISON STUDY: Head CT performed earlier today. TECHNIQUE: Helical axial images of the head were obtained following uneventful intravenous administr ation of 119 cc of Optiray. Sagittal and coronal reconstructions were viewed as well as maximal inten sity projections on an independent 3-D workstation. Automated exposure control was utilized for the study. A dose lowering technique was utilized adhering to the principles of ALARA. CT DOSE: 267.77 mGy.cm FINDINGS: Ventricular system is unremarkable. Basal cisterns are patent. No acute hemorrhage is ident ified on this contrast enhanced exam. The bilateral M1, M2, A1 and A2 segments are patent. There is n o central vessel occlusion. There is no intracranial aneurysm. Posterior circulation is intact. There is minimal plaque within the bilateral cavernous carotids without stenosis. Major dural sinuses are patent. IMPRESSION: Unremarkable CTA of the head. No central vessel occlusion. No intracranial aneurysm. ACT 112: Negative or not required by law. Electronically signed by: Amador Coley M.D. 04/07/2022 12:02 PM
[2022-04-07] MEDS ORDERED: SODIUM CHLORIDE 0.9% 1000ML 1,000 ML IV SCH (13:05)
[2022-04-07] MEDS ORDERED: ONDANSETRON INJ 2 MG/ML 2 ML VIAL IV PRN (13:05)
--- NOTE | 2022-04-07 15:31 | Electrocardiogram Report ---
Test Reason : Blood Pressure : / mmHG Vent. Rate : 079 BPM Atrial Rate : 079 BPM P-R Int : 176 ms QRS Dur : 078 ms QT Int : 392 ms P-R-T Axes : 051 -14 085 degrees QTc Int : 449 ms Poor data quality, interpretation may be adversely affected Normal sinus rhythm Possible Left atrial enlargement Nonspecific ST and T wave abnormality Abnormal ECG When compared with ECG of 06-OCT-2021 08:15, Criteria for Septal infarct are no longer Present Confirmed by Kaiser Wiley ([id number]) on 04/07/2022 3:31:01 PM Referred By: Confirmed By:Kaiser Wiley
[2022-04-07] MEDS: ACETAMINOPHEN 500 MG TAB PO PRN (19:26)
--- NOTE | 2022-04-07 19:36 | Communication Note ---
Date of Service: April 07, 2022 Messaged by nursing about patient taking carbamazepine extended release 100mg PO BID (not on meds list). Per PMHx, presumed for trigeminal neuralgia. As patient is here for recurrent syncope workup, will order half dose 50mg (immediate release as extended release cannot be split in half) PO BID to prevent withdrawal / abrupt discontinuation. Patient told nurse that she believes she had syncope today because she took her 's Aricept by accident last night. Carbamazepine is one possible cause of Waters[place]ja syncope. Dayshift to resume home dose if appropriate.
[2022-04-07] MEDS: carBAMazepine 100 MG CHEW TAB PO SCH (21:21)
[2022-04-07] MEDS: FLUVASTATIN SODIUM 20 MG CAP PO SCH (21:21)
[2022-04-08] MEDS: ACETAMINOPHEN 500 MG TAB PO PRN (03:50)
[2022-04-08 07:00] LABS: BUN Creatinine Ratio 12.7 (10-20); Calcium 8.6 mg/dl (8.5-10.1); Creatinine Clr Calc Pharmacy 47.8 ml/min; Est GFR (African American) 90.7 ml/min; Est GFR (Non-African American) 78.2 ml/min; Potassium 4.4 mmol/L (3.5-5.1)
[2022-04-08 07:30] LABS: Estimated Average Glucose 108 mg/dl; Hemoglobin A1C 5.4 % (4.5-5.6)
[2022-04-08] MEDS ORDERED: CYANOCOBALAMIN 1000 MCG/ML VIAL IM ONE (08:13)
[2022-04-08] MEDS: carBAMazepine 100 MG CHEW TAB PO SCH (08:56)
[2022-04-08] MEDS: FLUVASTATIN SODIUM 20 MG CAP PO SCH (08:57)
[2022-04-08] MEDS ORDERED: MULTIVITAMIN TAB PO SCH (09:00)
[2022-04-08] MEDS ORDERED: LOSARTAN POTASSIUM 50 MG TAB PO SCH (09:00)
--- NOTE | 2022-04-08 11:55 | Discharge Summary ---
Date of Service April 08, 2022 Admission HPI Per Admitting Provider Very pleasant 86yo female with history of HTN and trigeminal neuralgia presents from her apartment at [facility] after having had a fall with syncope. Patient states she was in her usual state of health the last few days and has felt well. Last PM she accidentally took her 's aricept 10mg just before bedtime. She also took her evening trigeminal neuralgia medication (gabapentin? but patient stated it was changed recently and she can't remember the name of it). She went to bed without any issue and felt fine. She woke up in the middle of the night to use the bathroom and had no troubles the first time. A little later in the night she woke up to void a second time. On this occasion she went to the closet to get her slippers and while doing so she noticed her visual was "a bit off." She then walked to the bathroom and from there doesn't remember anything until she woke up on the floor. She does not know how long she was laying on the ground. She struck her face and chipped her central incisor and bruised her chin. She denied any neck pain or headache, no hip pain or back pain, or pain in any other location. Prior to this fall/syncopal episode she denies ANY prodromal shortness of breath, palpitations, chest pain, dizziness, or lightheadedness. She only had the blurry vision briefly in the closet before the event. When she woke up on the floor she had nausea with subsequent dry heaves. She pulled the emergency cord in her bathroom and assistance came to her apartment. Ultimately an ambulance was summoned and she was brought to [facility]. Patient states she has had 2 other syncopal episodes recently. First was on December 19. She was in her bathroom at home and passed out. She had no prodromal symptoms then. Another episode occurred sometime in December. She had walked to her kitchen and was standing at the sink when she fell/passed out. Again she had no prodromal symptoms. She states that with the December 19 episode she was "dizzy" for a few days and "I just layed in bed." She denies true vertigo with that November episode. She was sent for an echo in late February as part of her work-up for her recurrent syncope. This returned normal with preserved EF and normal valve function. She has never had an event or Holter monitor. Discharge Exam gen - very pleasant, NAD, no confusion/awake/alert eyes - lens implants b/l, PERRL face - bruise on chin and left zygoma region; nontender with palpation over facial structures HENT - central incisor on right (maxillary) with chipped tooth; other teeth wnl; no tongue bite dahl; mmm neck - no JVD, masses, bruits heart - RRR, s1 s2, 2/6 JEANNE LLSB lungs - CTA b/l abd - soft NT ND BS+; no HSM ext - no edema, pulses 2+ b/l in feet musculo - no hip pain with passive ROM; no shoulder pain with passive ROM; no obvious deformities back - no tenderness to palpation over c-spine, t-spine, l-spine neuro - strength 5/5 x 4 exts; finger/nose/finger maneuver without ataxia; gait not tested; CN 3-12 intact skin - bruise on chin, left zygoma region psych - a/o x 3 lymph - no cervical lymph nodes Discharge Data Allergies Allergy/AdvReac Type Severity Reaction Status Date / Time No Known Allergies Allergy Verified 10/25/21 12:55 Consultations 04/07/22 09:16 ED Decision to Admit Stat Ordered Studies 04/07/22 07:43 CT cervical spine wo con Stat CT face [CT facial bones wo con] Stat 04/07/22 07:44 CT head/brain wo con Stat 04/07/22 10:18 CTA head w con [CT angio head w con] Stat CTA neck with con [CT angio neck with con] Stat Hospital Course (1) Syncope: Syncope with resulting fall. Unknown amount of time with loss of consciousness. Suffered facial contusion and a chipped right maxillary incisor. Fortunately no evidence of other injury - negative head CT, negative c-spine CT. NO evidence of pelvic or hip fracture. The patient inadvertently took her 's aricept 10mg last evening before this event. Aricept, through activation of the vagus nerve, can cause bradycardia, heart block, and syncope. Thus, it is very possible that her event was due to her taking aricept. Alternatively, it is possible that the aricept was not the precipitating factor. Heart arrhythmia de chris may have been the culprit. Tachy-arrhythmia, kwasi-arrhythmia, pauses, AV block, etc are all possible causes of her syncope. Orthostatic BPs were checked in the ER prior to admission and were wnl. EKG without ischemic changes. Initial troponin negative. No hypoglycemia at time of presentation. Finally, she had an outpatient echo in 02/2022 that showed normal EF and normal valve function. Plan - * place on telemetry * CTA head & neck - r/o occlusive PAD * if the CTAs are negative will arrange outpatient 30-day event monitor to r/o arrhythmia as the cause of her event * check hemoglobin a1c in the am * replace low K, however I do not believe that this contributed to her event * provide gentle fluids today (2) Recurrent falls: See #1 above. PT eval to ensure safe discharge. Check a B12 level to be complete. (3) Contusion of face: Tylenol prn pain. No evidence of any facial fracture. Has a chipped tooth - f/u with her dentist after discharge for this. (4) Hypertension: BPs elevated upon presentation. Resume losartan. Trend BPs. Again no evidence of orthostasis. (5) Acute hypokalemia: Replace with 40meq of K-dur. Repeat K in am. Mag level wnl. (6) Trigeminal neuralgia: Gabapentin was recently stopped. She was changed to tegretol 100mg BID for prophylaxis/pain control. Date of switch is unknown. Check a tegretol level in am. (7) Hyperglycemia: Repeat BMP in am. Check a1c in am to r/o pre-DM or DM. (8) Elevated AST (SGOT): Checked CPK due to fall - CPK was wnl. Repeat the ast/alt in am. etiology uncertain. Due to statin usage? Other? (9) Dyslipidemia: Continue statin. Plan Pt's son was updated by phone with plan of care. Place in observation status. Discharge Plan Discharge Items Patient Disposition: Home - Self-Care Reason For Visit: SYNCOPE Discharge Diagnosis: 1. Syncope (passing out spell) 2. Vitamin B12 deficiency - level of 151 3. Low potassium - resolved 4. High blood glucose - resolved; likely was due to stress of your fall; hemoglobin a1c test was normal ruling out diabetes (5.4%; normal <5.7%) 5. Fall with chipped tooth - please see your dentist 6. Facial trauma - no facial fractures seen Activity: As commented below Activity Comment: take it easy today/tomorrow, then gradually resume normal activities Exercise/Sports: Wait until after follow-up appointment Driving/Machine Use: wait until after your appointment with Dr Kenney Non-emergency contact: Primary Care Provider Call non-emergency contact if: you have any medication questions and your symptoms worsen Follow-up/Referrals: Tiny Lemus [Primary Care Provider] - (Please see Dr Kenney on Sunday or Sunday for recheck ) Diet: Regular Diet Texture: Easy to Chew Addtl Attending Provider Instructions: Mrs Tineo, Akira were hospitalized at [facility] after suffering a fall at your home. This was associated with syncope (passing out) and facial trauma. We performed various tests to rule out causes of your syncope. We did not see evidence of any infection. Your urinalysis, COVID test, and chest x-ray were all normal/negative. CT scans of the head and neck showed normal blood flow - specifically, we did not see blocked arteries or aneurysms. Heart monitoring during your stay was normal. You did have a mildly elevated glucose level at time of admission but this was likely due to the stress of your fall & injury. Your scans of your head and face did not show broken bones, bleeding, or stroke. Ultimately it is entirely possible that the aricept (donepezil) caused your syncope event. Alternatively a heart rhythm problem irrespective of the donepezil may have precipitated the event. Physical therapy saw you and you did well with them. They feel you can return home with your spouse. We checked a vitamin B12 level and this returned low. Vitamin B12 deficiency can cause balance problems, anemia, memory difficulties, and other symptoms. Vitamin B12 deficiency would not cause syncope, however. At times your blood pressures were high, but at other times your blood pressures were low-normal. Recommendations - 1. Take HALF of a tablet of your losartan each morning. Please break the 100mg tablet in half and take 50mg each morning. Your next dose is due tomorrow morning, 04/09/22. 2. Purchase hvmo-aph-[id number] vitamin B12 1000mcg (1mg) and take 1 tab each day. You will need to do this for about 6-12 months to replenish your B12 levels. 3. Continue to monitor your blood pressure at home. Check about 1-2 times each day and show those values to Dr Kenney. 4. Resume your usual dose of carbamazapine 100mg twice daily as previous for trigeminal neuralgia. 5. We will be mailing a heart monitor to your home. It will come with inst ructions on its use. It will be a 30-day heart monitor. Results are interpreted by a [facility] Assisting Instructor and sent to your family doctor. 6. Please follow-up with your dentist for your chipped tooth. 7. Ice as needed, tylenol as needed, etc for facial pain/swelling. 8. Watch for symptoms of concussion -- mental fogginess, headaches, fatigue, sensitivity to light or loud noises, simply feeling unwell, feeling "spacy", etc. Follow-up - see separate section Return to [facility] if - * you have episodes of recurrent syncope or falls * you have difficulty breathing or chest pain * you feel dizzy or lightheaded * any other concerns It was my pleasure to care for you at [facility]! Dr Koroma Pending Studies at Discharge: No Stand-Alone Forms: My [facility], Smoking Cessation Medications and DC Order Prescriptions: New cyanocobalamin (vitamin B-12) 1,000 mcg capsule 1,000 mcg PO DAILY Qty: 90 3RF Rx Instructions: purchase [id number] carbamazepine [Tegretol XR] 100 mg tablet extended release 12 hr 100 mg PO BID Qty: 60 0RF Continued fluvastatin 80 mg tablet extended release 24 hr 80 mg PO HS multivitamin [Daily Multi-Vitamin] tablet 1 tab PO QAM Changed losartan 100 mg tablet 50 mg PO QAM Qty: 1 0RF Discontinued gabapentin 100 mg capsule 200 mg PO HS Discharge Orders: Discharge Order (Routine); Ordered 04/08/22 Ordered By: Marcio Lynch/Other Patient Handouts: What Is Syncope, Causes of Syncope Admission Data Admit Date/Time: 04/07/22 09:13 Attending Provider: Marcio Koroma Admit Provider: Marcio Koroma Primary Care Provider: Tiny Lemus Other Providers: Marcio Koroma Coding Diagnoses Syncope R55 Recurrent falls R29.6 Contusion of face S00.83XA Hypertension I10 Acute hypokalemia E87.6 Trigeminal neuralgia G50.0 Hyperglycemia R73.9 Elevated AST (SGOT) R74.01 Dyslipidemia E78.5
== END 2022-04-08 13:25 | disposition home or self-care (01) ==
LOC: ED 07:26 → 2W 07:26